=== PATIENT | male | born 1965 | race Caucasian/White ===

== ENCOUNTER 2020-05-31 12:43 | Inpatient (IN) | payer OTHER ==
[~2020-05-31] VITALS: Ht 162.6 cm; Wt 77.1 kg
[~2020-05-31 12:43] MED LIST: ALBU90OI INH; ATOR40TA; ATOR80 PO; AZIT250 PO; CEPH500 PO; FLUSAL2505; GEMF600; GLIP5 PO; HUMALOG; HYDACE5 PO; HYDACE5325 PO; HYDCHL25 PO; Humalog100 UNIT/1 SC; IBUP600 PO; INSLI100I SC; INSULANI SC; INSULANPEN SC; LISI20 PO; METF500; Monodox100 MG PO; NIASPAN PO; Naprosyn500 MG PO; OMEG1CAP30; OMEG1CAP30 PO; PROM25 PO; ROSI4; RXCLIN PO; RXHYD5325 PO; RXHYDACE PO; TRICOR; VITAMIN D; Ventolin/Prove6.7 GM INH
[2020-05-31 13:31] LABS: BASOPHILS ABSOLUTE AUTO 0.04 K/mm3 (0.00-0.23); BASOPHILS PERCENT AUTO 0 % (0-2); EOSINOPHILS ABSOLUTE AUTO 0.09 K/mm3 (0.00-0.68); EOSINOPHILS PERCENT AUTO 1 % (0-6); Hematocrit 45.2 % (37.0-53.0); Hemoglobin 15.4 g/dL (13.5-17.5); IMMATURE GRAN ABSOLUTE AUTO 0.15 K/mm3 (0.00-0.10); IMMATURE GRAN PERCENT AUTO 2 % (0-1); LYMPHOCYTES PERCENT AUTO 14 % (21-46); MONOCYTES ABSOLUTE AUTO 0.55 K/mm3 (0.16-1.47); MONOCYTES PERCENT AUTO 6 % (4-13); Mean Corpuscular HGB 29.8 pg (26.0-34.0); Mean Corpuscular HGB Conc 34.1 g/dL (31.5-36.5); Mean Corpuscular Volume 87 fL (80-100); Mean Platelet Volume 9.4 fL (9.1-12.4); NEUTROPHILS ABSOLUTE AUTO 7.79 K/mm3 (1.96-9.15); NEUTROPHILS PERCENT AUTO 78 % (41-73); Platelet Count 339 K/mm3 (150-400); RDW Coefficient Variation 13.2 % (11.7-14.2); RDW Standard Deviation 42.3 fL (35.1-46.3); Red Blood Cell Count 5.17 M/mm3 (4.30-5.90); White Blood Cell Count 10.02 K/mm3 (4.00-11.30)
[2020-05-31 13:48] LABS: International Normalized Ratio 0.91; Prothrombin Time Results 9.8 Sec (9.7-11.5)
[2020-05-31 13:51] LABS: Alanine Aminotransfer (ALT/SGP 39 U/L (12-78); Albumin, Blood 3.9 g/dL (3.4-5.0); Alk Phos 100 U/L (50-136); Anion Gap 14 mmol/L (6-16); Aspartate Aminotrans (AST/SGOT 22 U/L (12-37); Bilirubin, Total 0.4 mg/dL (0.1-1.0); Blood Urea Nitrogen 14 mg/dL (8-24); Bun/Creatinine Ratio 17.7 (12.0-20.0); CO2, Blood 21 mmol/L (21-32); Calcium, Blood 8.9 mg/dL (8.5-10.1); Chloride, Blood 98 mmol/L (98-108); Creatinine, Blood 0.79 mg/dL (0.60-1.20); Globulin, Blood 4.1 g/dL (2.2-4.0); Glomerular Filtration Rate >60 (60-); Glucose, Blood 437 mg/dL (70-99); Potassium, Blood 4.3 mmol/L (3.5-5.5); Sodium, Blood 133 mmol/L (136-145)
[2020-05-31 17:02] LABS: Cholesterol 319 mg/dL (50-200)
[2020-05-31 17:12] LABS: CHOL/HDL RATIO Unable to Calculate; LDL/HDL RATIO Unable to Calculate; Low Density Lipoprotein Chol Unable to Calculate mg/dL (0-110); Triglycerides 1191 mg/dL (30-160); Very Low Density Lipoprot Chol 238 mg/dL (6-32)
--- NOTE | 2020-05-31 19:03 | NUR ---
focused neuro assessment upon arrival from ED at approx 1800: Alert, oriented, and carrying on conversation that makes sense. Speech somewhat slurred. Left sided droop noted with smile, grimace and speech. PERRL; pt states "lazy left eye" but does have vision out of this eye. Soft palate rises unevenly, less on the left side. No lateral tongue deviation noted. Poor dentition. Pt states he doesn't have dentures yet. Weakness noted left shoulder, left arm, left hand and left leg. Movement of left arm extremely limited. Active movement of left leg limited somewhat. Denies numbness/tinglig in any part of his body.
--- NOTE | 2020-05-31 19:33 | NUR ---
ADMITTED PT AROUND 1800 FROM ER POST ACUTE CVA. PT PRESENTED WITH LEFT SIDED WEAKNESS, IMPAIRED LEFT ARM WITHOUT CONTROL OR MOVEMENT, WEAK LEFT LEG HOWEVER THE PT COULD BEND THE KNEE WHEN DESIRED. HEART SOUNDS S1 AND S2 PRESENT, TELE BOX APPLIED AND VERIFIED UPON ADMISSION. LUNG SOUNDS CLEAR. BOWEL SOUNDS PRESENT IN ALL FOUR QUADRANTS, PT STATES LAST BM WAS 05/31/20 IN THE MORNING. PT HAS HX OF ASTHMA, HTV, DIABETES TYPE 2, HIGH CHOLESTEROL AND DEVELOPMENTAL DELAY. PT IS A&O X4 AND IS ABLE TO STAND AT THE BEDSIDE WITH 1 PERSON ASSIST TO USE THE URINAL. ER REPORT STATES THE GOAL IS TO KEEP SBP BELOW 200, THIS WAS MAINTAINED FOR THE REMAINDER OF DAY SHIFT FOLLOWING ADMISSION. CBG 277 UPON ADMISSION, INSULIN COVERAGE WAS GIVEN, PT AGREED TO A FLU VACCINE WHICH WAS ADMINISTERED. PT DOES NOT HAVE AN ADVANCED DIRECTIVE BUT SAID HE WOULD CONSIDER IT, THINK ABOUT IT WHILE HE IS HERE. PT ALSO STATED "MY LEFT EYE IS LAZY" HOWEVER HE WAS ABLE TO MOVE IT WITH COMMAND AND NAME CORRECTLY THE NUMBER OF FINGERS RN WAS HOLDING UP. PT REPORTED BEING HUNGRY WHEN COMING TO PCU. BEDSIDE SWALLOW EVAL. WAS COMPLETED BY RN, PT COUGHED DURING TESTING WITH THIN LIQUIDS BUT WAS ABLE TO COMPLETE THE TEST AND TOLERATE NECTAR THICK LIQUIDS IN SMALL AMOUNTS 30ML OR LESS AT A TIME. SPEECH THERAPY CONSULT HAS BEEN ORDERED FOR SWALLOW EVAL.
--- NOTE | 2020-05-31 21:34 | NUR ---
UPDATE NURSE PRACTIONER SANJANA NOTIFIED OF PATIENTS BLOOD SUGAR LEVEL OF 254 AND THAT HE HAS 20 UNITS OF SEMGLEE ORDERED. SHE ORDERED TO ADMINSTER SEMGLEE ORDERED BUT COSMETOLOGY EDUCATOR SANJANA STATED TO HOLD THE HUMALIN THAT WAS ORDERED FOR 2100.
--- NOTE | 2020-06-01 06:22 | NUR ---
SHIFT SUMMARY PATIENT ALERT AND ORIENTED THROUGHOUT THE SHIFT. PATIENT REPORTS NO MOVMENT IN LEFT ARM AND MINIMAL MOVEMENT TO LEFT LEG. NO CHANGES TO MOVEMENT NOTED THROUGHOUT THE NIGHT. PATIENT AWAKE FOR THE FIRST HALF OF THE NIGHT. PATIENT THEN GOT UP WITH A HEARVY ONE PERSON ASSIST TO A RECLINER AT APPROX 0030, WHERE HE STAYED THE REST OF THE NIGHT. ONCE IN THE RECLINER PATIENT ABLE TO FALL ASLEEP AND APPEARED TO SLEEP WELL THROUGHOUT THE REST OF THE NIGHT. PATIENT REMAINED NPO FOR SWALLOW UNTIL SWALLOW EVAL THIS MORNING. PATIENT PROVIDED WITH SWABS PRN. PATIENT'S SPEECH SLURRED AND PATIENT MUMBLES AT TIMES BUT IS ABLE TO MAKE HIS NEEDS KNOWN. WILL CONTINUE TO MONITOR PATIENT AND REPORT TO ONCOMING RN.
--- NOTE | 2020-06-01 08:26 | NUR ---
CARE ASSUMED CARE AND REPORT ASSUMED FROM JAMARI MORFIN. PT SITTING UPRIGHT IN RECLINER CHAIR. DENIES PAIN AT THIS TIME. VSS. DEVELOPMENTALLY DELAYED AT BASELINE. STATES HE LIVES WITH FRIENDS. SPEECH IS SLURRED, WITH L FACIAL DROOP. L ARM WEAK WITH LIMITED ROM. UNABLE TO MOVE LEFT LEG, BUT REPORTS HE CAN FEEL WHEN TOUCHED. NO DEFICITS ON R SIDE. SEEN BY IFTIKHAR THIS AM. WILL TRANSFER TO MEDICAL FLOOR. BEDSIDE ECHO AT THIS TIME. AWAITING SPEECH EVAL. WILL CONTINUE TO MONITOR.
--- NOTE | 2020-06-01 09:39 | NUR ---
TRANSFER REPORT CALLED TO MARGARET SILVA AT 0940. PT TO BE TRANSFERRED TO ROOM 354 BY WHEELCHAIR.
--- NOTE | 2020-06-01 14:49 | NUR ---
SHIFT SUMMARY PT TX'D TO RM 354 VIA W/C FROM PCU 9 THIS AM. PT WITH HX OF HTN, DM, ASTHMA, AND BEING DEVELOPMENTALLY DELAYED AT BASELINE. PT ADMITTED FOR ACUTE CVA WITH L SIDE DEFICITS. PT ABLE TO STAND AND PIVOT FROM W/C TO CHAIR AT BS. SP EVAL DONE IN PCU, PRIOR TO TX; PT TO HAVE [facility] SOFT DIET. PT/OT EVALS RECOMMENDING SNF AT D/C AND THEN ADULT [facility] D/T NEW DEFICITS. PER REPORT, PT WAS INDEPENDENT PRIOR TO CVA AND NOW WILL NEED HIGHER LEVEL OF CARE WITH MORE SUPPORT. PT ABLE TO TAKE MEDS WHOLE IN APPLESAUCE W/O DIFFICULTY. BP IS SLOWLY COMING DOWN; PT TO START BP MEDS IN AM. PT IS RESTING QUIETLY IN RECLINER AT BS. NO C/O. ABLE TO USE CALL LT AND CELL PHONE ON HIS OWN. DENIES FURTHER NEEDS.
--- NOTE | 2020-06-01 16:55 | NUR ---
echocardiogram complete
--- NOTE | 2020-06-02 06:45 | NUR ---
SHIFT SUMMARY PATIENT ALERT AND ORIENTED. DID NOT SLEEP MUCH OVERNIGHT HE COULD NOT GET COMFORTABLE AND WAS BACK AND FORTH BETWEEN HIS BED AND RECLINER MULTIPLE TIMES. PATIENT DID NOT COMPLAIN OF ANY PAIN. IV PATENT AND FLUSHED. BED IN LOWEST POSITION WITH WHEELS LOCKED AND ALARM ON. CALL LIGHT WITHIN REACH. REPORT GIVEN TO ONCOMING RN.
--- NOTE | 2020-06-02 16:44 | NUR ---
SBAR REPORT CALLED TO RONAN AT [facility] AT 1615. PATIENT VERBALIZED UNDERSTANDING OF DISCHARGE PLAN. PATIENT PICKED UP BY TRANSPORT SERVICE AT 1645. ALL BELONGINGS SENT WITH PATIENT.
[2020-06-02] MEDS ORDERED: ASPI81CH PO (16:56)
[2020-06-02] MEDS ORDERED: ACET325 PO (16:56)
[2020-06-02] MEDS ORDERED: ATOR80 PO (16:56)
[2020-06-02] MEDS ORDERED: HUMULIN R100 UNIT/2 SC (16:57)
[2020-06-02] MEDS ORDERED: BASAGLAR K100 UNIT/1 SC (16:57)
[2020-06-02] MEDS ORDERED: HYDR10 PO (16:57)
[2020-06-02] MEDS ORDERED: Prinivil10 MG PO (16:58)
== END 2020-06-02 16:51 | DRG 65 ==
LOC: ER 12:43 → PCU 12:44 → MEDS 06-01 09:47
PROVIDERS: Emergency Medicine; ADMIT Family Medicine
PROC: 3E0234Z Introduction of Serum, Toxoid and Vaccine into Muscle, Percutaneous Approach (ICD-10-PCS; principal; 2020-05-31)
DX: I63.232 Cerebral infarction due to unspecified occlusion or stenosis of left carotid arteries (principal); G81.94 Hemiplegia, unspecified affecting left nondominant side; I16.1 Hypertensive emergency; R29.810 Facial weakness; R47.1 Dysarthria and anarthria; Z23 Encounter for immunization; I10 Essential (primary) hypertension; E11.65 Type 2 diabetes mellitus with hyperglycemia; E78.5 Hyperlipidemia, unspecified; Z91.14 Patient's other noncompliance with medication regimen; Z79.4 Long term (current) use of insulin
CPT/HCPCS: 36415; 70450; 70496; 70498; 70551; 80053; 80061; 82947; 83036; 85025; 85610; 85730; 92610; 93005; 93010; 93306; 93312; 93325; 96372; 96374; 96375; 96376; 97110; 97112; 97116; 97162; 97166; 97530; 99152; 99285-25; A9270-GY; G0008; G0378; J0171; J0461; J1650; J1815; J2250; J2310; J2405; J3010; J7040; Q2038; Q9967; U0004

== ENCOUNTER 2021-02-23 18:03 | Observation (INO) | payer OTHER ==
[~2021-02-23] VITALS: Ht 162.6 cm; Wt 85.1 kg
[~2021-02-23 18:03] MED LIST changes: +ACET325 PO; +ASPI81CH PO; +BASAGLAR K100 UNIT/1 SC; +HUMULIN R100 UNIT/2 SC; +HYDR10 PO; +Prinivil10 MG PO
[2021-02-23 19:05] LABS: BASOPHILS ABSOLUTE AUTO 0.04 K/mm3 (0.00-0.23); BASOPHILS PERCENT AUTO 0 % (0-2); EOSINOPHILS ABSOLUTE AUTO 0.27 K/mm3 (0.00-0.68); EOSINOPHILS PERCENT AUTO 3 % (0-6); Hematocrit 41.3 % (37.0-53.0); Hemoglobin 13.6 g/dL (13.5-17.5); IMMATURE GRAN PERCENT AUTO 1 % (0-1); LYMPHOCYTES ABSOLUTE AUTO 1.84 K/mm3 (0.84-5.20); LYMPHOCYTES PERCENT AUTO 19 % (21-46); MONOCYTES ABSOLUTE AUTO 0.75 K/mm3 (0.16-1.47); MONOCYTES PERCENT AUTO 8 % (4-13); Mean Corpuscular HGB 29.8 pg (26.0-34.0); Mean Corpuscular HGB Conc 32.9 g/dL (31.5-36.5); Mean Corpuscular Volume 90 fL (80-100); Mean Platelet Volume 9.5 fL (9.1-12.4); NEUTROPHILS ABSOLUTE AUTO 6.83 K/mm3 (1.96-9.15); NEUTROPHILS PERCENT AUTO 70 % (41-73); Platelet Count 271 K/mm3 (150-400); RDW Coefficient Variation 13.1 % (11.7-14.2); RDW Standard Deviation 43.3 fL (35.1-46.3); Red Blood Cell Count 4.57 M/mm3 (4.30-5.90); White Blood Cell Count 9.83 K/mm3 (4.00-11.30)
[2021-02-23 19:22] LABS: Alanine Aminotransfer (ALT/SGP 34 U/L (12-78); Albumin, Blood 3.5 g/dL (3.4-5.0); Albumin/Globulin Ratio 1.1 (0.8-1.8); Alk Phos 63 U/L (50-136); Anion Gap 4 mmol/L (6-16); Aspartate Aminotrans (AST/SGOT 17 U/L (12-37); Bilirubin, Total 0.2 mg/dL (0.1-1.0); Blood Urea Nitrogen 30 mg/dL (8-24); CO2, Blood 29 mmol/L (21-32); Calcium, Blood 8.7 mg/dL (8.5-10.1); Chloride, Blood 105 mmol/L (98-108); Creatinine, Blood 0.97 mg/dL (0.60-1.20); Globulin, Blood 3.3 g/dL (2.2-4.0); Glomerular Filtration Rate >60 (60-); Glucose, Blood 247 mg/dL (70-99); Potassium, Blood 3.9 mmol/L (3.5-5.5); Sodium, Blood 138 mmol/L (136-145); Total Protein, Blood 6.8 g/dL (6.4-8.2)
[2021-02-23 19:26] LABS: Source, Urine Clean Catch
[2021-02-23 19:31] LABS: Appearance, Urine Clear (Clear); Bilirubin, Urine Neg (Neg); Blood, Urine Neg (Neg); Glucose Qualitative, Urine 4+ (Neg); Ketones, Urine Neg (Neg); Leukocyte Esterase, Urine Neg (Neg); Nitrite, Urine Neg (Neg); Protein, Urine 1+ (Neg); Specific Gravity, Urine 1.005 (1.003-1.022); Urobilinogen, Urine NORM (Normal)
[2021-02-23 19:39] LABS: Color, Urine Pale Yellow (P-Yellow)
--- NOTE | 2021-02-24 05:49 | NUR ---
SHIFT SUMMARY- PT. NEW ADMISSION FROM ED. VERY SLEEPY UPON ARRIVAL TO UNIT, BUT RESPONDS TO VERBAL STIMULI AND ABLE TO ANSWER MOST QUESTIONS APPROPRIATELY. HX OF DEVELOPMENTAL DELAY AND CVA. RESIDUAL L SIDED DEFICIT R/T PREVIOUS CVA. HAD NO COMPLAINTS DURING THE NIGHT. SLEPT T/O THE NIGHT, NO APPARENT DISTRESS NOTED, VSS. CALL LIGHT WITHIN REACH, SIDE RAILS UPX2, AND BED ALARM ON. WILL CONT TO MONITOR.
[2021-02-24] MEDS ORDERED: Ventolin/Prove6.7 GM INH (06:35)
[2021-02-24] MEDS ORDERED: ALOGLIPTIN25 M1 PO (06:37)
[2021-02-24] MEDS ORDERED: CYCL10 PO (06:38)
[2021-02-24] MEDS ORDERED: COLCRYS0.6 M1 PO (06:38)
[2021-02-24] MEDS ORDERED: SITA50T2 PO (06:39)
[2021-02-24] MEDS ORDERED: JARDIANCE25 MG PO (06:39)
[2021-02-24] MEDS ORDERED: ALLEGRA ALLERG180 MG PO (06:39)
[2021-02-24] MEDS ORDERED: LOPERAMIDE PO (06:39)
[2021-02-24] MEDS ORDERED: ZOLOFT25 MG PO (06:40)
--- NOTE | 2021-02-24 13:39 | NUR ---
VERBAL CONSENT FROM PT TO TALK TO WIRE TURNING MACHINE OPERATOR KALYN ENRIQUEZ RECEIVED LUKE PHONE NUMBER
--- NOTE | 2021-02-24 16:59 | NUR ---
SHIFT SUMMARY PT ALERT AND WILL ANSWER QUESTION. PT HAD A HX OF DEVELOPMENTAL DELAY. DENIES PAIN OR SOB. PT PUBLISHING SYSTEMS ANALYST UPDATED AND DISCUSSED ABOUT THIS PT AND CALLED THE PUBLISHING SYSTEMS ANALYST FOR AN UPDATE WELL. WILL LIKELY DC TOMORROW BED IS IN THE LOWEST POSITION AND CALL LIGHT WITHIN REACH
--- NOTE | 2021-02-25 05:39 | NUR ---
SHIFT SUMMARY- NO ACUTE EVENTS OVERNIGHT. PT. UP IN CHAIR PART OF THE NIGHT, THEN ASSISTED INTO BED. ASLEEP T/O THE NIGHT, DENIED PAIN OR DISCOMFORT. VSS. CALL LIGHT WITHIN REACH, SIDE RAILS UPX2, AND BED ALARM ON. WILL CONT TO MONITOR.
[2021-02-25] MEDS ORDERED: CLOP75 PO (11:33)
[2021-02-25] MEDS ORDERED: Acetaminophen650 M1 PO (11:33)
--- NOTE | 2021-02-25 12:57 | NUR ---
PT DISCHARGE TO [facility]. [facility] CALLED IN THIS AM ABOUT THE PT. FAXED THE MED REC TO THE FACILITY AND THEY RECEIVED IT. IV DC'D. PT RESIDENTIAL PROPERTY CONSULTANT AT BEDSIDE DURING EDUCATION INSTRUCTION. DISCUSSED ABOUT STROKE PREVENTION AND NEW MEDICATION SUCH PLAVIX. PT VALUABLE ITEMS WITH PT. PT RECEIVED DISCHARGE PAPER.
== END 2021-02-25 12:47 | disposition home or self-care (01) ==
LOC: ER 18:03 → MEDS 23:41
PROVIDERS: Emergency Medicine; ADMIT Hospitalist
DX: I63.89 Other cerebral infarction (principal); I10 Essential (primary) hypertension; J45.909 Unspecified asthma, uncomplicated; E78.00 Pure hypercholesterolemia, unspecified; E11.65 Type 2 diabetes mellitus with hyperglycemia; R62.50 Unspecified lack of expected normal physiological development in childhood; Z88.1 Allergy status to other antibiotic agents; Z88.2 Allergy status to sulfonamides; Z88.5 Allergy status to narcotic agent; Z79.4 Long term (current) use of insulin
CPT/HCPCS: 36415; 70450; 70496; 70498; 80053; 82947; 83036; 85025; 93005; 93010; 96374; 96375; 97116; 97162; 99285-25; A9270; G0378; J1200; J1885; J2765; J7030; Q9967